=== PATIENT | male | born 1955 | race Caucasian/White ===

== ENCOUNTER 2017-01-23 00:32 | Observation (INO) | payer BC ==
[~2017-01-23] VITALS: Ht 185.4 cm; Wt 97.5 kg
[2017-01-23 00:59] LABS: HEMOGLOBIN 14.9 gm/dl (14.0-17.5); RED BLOOD COUNT 4.61 M/UL (4.20-5.50); WHITE BLOOD COUNT 4.4 K/UL (4.5-11.0)
[2017-01-23 01:18] LABS: BUN/CREATININE RATIO 18 (0-10)
[2017-01-23 09:32] LABS: BUN/CREATININE RATIO 17 (0-10)
[2017-01-23] MEDS ORDERED: SINGULAIR10 MG PO (10:56)
[2017-01-23] MEDS ORDERED: ASPIR-LOW81 MG PO (10:56)
[2017-01-23] MEDS ORDERED: CLARITIN10 MG PO (10:57)
[2017-01-23] MEDS ORDERED: VITAMIN D2000 UNI1 PO (10:57)
[2017-01-23] MEDS ORDERED: PRILOSEC OTC20 MG PO (10:58)
[2017-01-23] MEDS ORDERED: LIVALO2 MG PO (11:01)
[2017-01-24 06:53] LABS: BUN/CREATININE RATIO 16 (0-10)
[2017-01-24] MEDS ORDERED: SYMBICORT 160-1 INHA INH (10:47)
[2017-01-24] MEDS ORDERED: PROVENTIL HFA 61 INH INH (10:48)
== END 2017-01-24 13:54 | disposition home or self-care (01) ==
LOC: ER1 00:32 → ZEROF 05:16 → M/S 05:16
PROVIDERS: Student in an Organized Health Care Education/Training Program; ADMIT Emergency Medicine
DX: J45.909 Unspecified asthma, uncomplicated (principal); I48.91 Unspecified atrial fibrillation; I27.2 Other secondary pulmonary hypertension; I07.1 Rheumatic tricuspid insufficiency; R00.2 Palpitations; E78.00 Pure hypercholesterolemia, unspecified; Z85.46 Personal history of malignant neoplasm of prostate; Z82.49 Family history of ischemic heart disease and other diseases of the circulatory system; Z79.82 Long term (current) use of aspirin; Z79.899 Other long term (current) drug therapy; Z98.890 Other specified postprocedural states
CPT/HCPCS: ECHO; 36415; 71010; 78452; 80048; 80053; 82550; 82553; 83874; 84436; 84443; 84484; 85025; 85379; 85610; 85730; 93005; 93017; 93306; 94010; 94729; 96360; 99285; A9502; G0378; J7030